=== PATIENT | male | born 1965 | race Caucasian/White ===

== ENCOUNTER 2020-09-09 11:46 | Inpatient (IN) | payer BC, OTHER ==
[~2020-09-09] VITALS: Ht 188 cm; Wt 100.7 kg
--- NOTE | 2020-09-09 12:26 | NUR ---
break rn: patient roomed to room 14 from lobby. patient aox4 vss at this time. waiting for CT scan.
[2020-09-09] MEDS ORDERED: SODIUM CHLORIDE FLUSH 10ML SYR IVF ONE (12:30)
--- NOTE | 2020-09-09 12:33 | NUR ---
break rn: patient on continuous monitoring, at bedside. lab at bedside
[2020-09-09 12:50] LABS: BASOPHILS % (AUTO) 1 % (0-1); EOSINOPHILS % (AUTO) 3 % (1-7); LYMPHOCYTES % (AUTO) 25 % (22-44); MEAN CORPUSCULAR HEMOGLOBIN 31.6 pg (27.5-34.5); MEAN CORPUSCULAR HGB CONC 33.3 g/dL (33.2-36.2); MEAN PLATELET VOLUME 7.5 fL (7.4-10.4); MONOCYTES % (AUTO) 8 % (2-9); NEUTROPHILS % (AUTO) 64 % (42-75); PLATELET COUNT 306 x10^3/uL (130-400); RED BLOOD COUNT 4.88 x10^6/uL (4.38-5.82); RED CELL DISTRIBUTION WIDTH 13.3 % (9.4-14.8)
[2020-09-09 12:51] LABS: MD NO
[2020-09-09 12:59] LABS: ALBUMIN 4.4 g/dL (3.4-5.0); CALCIUM 9.4 mg/dL (8.5-10.1)
--- NOTE | 2020-09-09 13:00 | NUR ---
PT UPRIGHT ON GURNEY WITH AT BEDSIDE. NAD, VSS. PT DENIES ANY ADDITIONAL NEEDS AT THIS TIME. CALL LIGHT WITHIN REACH, FALL PRECAUTIONS IN PLACE. WILL CONTINUE TO MONITOR.
[2020-09-09 13:02] LABS: ALANINE AMINOTRANSFERASE 25 U/L (12-78); ALKALINE PHOSPHATASE 65 U/L (45-117); BILIRUBIN,TOTAL 0.5 mg/dL (0.2-1.0); CREATININE 1.05 mg/dL (0.7-1.3); TOTAL PROTEIN 7.8 g/dL (6.4-8.2)
[2020-09-09 13:16] LABS: ANION GAP 7 mmol/L (5-15); CHLORIDE 112 mmol/L (98-107)
--- NOTE | 2020-09-09 13:30 | NUR ---
PT TO MRI
[2020-09-09] MEDS ORDERED: GADOTERATE 10 MMOL/20 ML VIAL ONE (13:49)
--- NOTE | 2020-09-09 14:15 | NUR ---
PT RETURNED FROM MRI. PT UPRIGHT ON GURNEY WITH AT BEDSIDE. NAD, VSS. PT DENIES ANY ADDITIONAL NEEDS AT THIS TIME. CALL LIGHT WITHIN REACH, FALL PRECAUTIONS IN PLACE. WILL CONTINUE TO MONITOR.
--- NOTE | 2020-09-09 15:00 | NUR ---
PT UPRIGHT ON GURNEY WITH AT BEDSIDE. NAD, VSS. PT DENIES ANY ADDITIONAL NEEDS AT THIS TIME. CALL LIGHT WITHIN REACH, FALL PRECAUTIONS IN PLACE. WILL CONTINUE TO MONITOR
[2020-09-09] MEDS ORDERED: SODIUM CHLORIDE FLUSH 10ML SYR IVF PRN (15:30)
[2020-09-09] MEDS ORDERED: DEXAMETHASONE 4 MG/ML, 1ML IVPush SCH (15:30)
--- NOTE | 2020-09-09 16:04 | NUR ---
PT TO BATHROOM WITH THIS RN. RETURNED TO [facility], PT UPRIGHT ON [facility] WITH AT BEDSIDE. NAD, VSS. PT DENIES ANY ADDITIONAL NEEDS AT THIS TIME. CALL LIGHT WITHIN REACH, FALL PRECAUTIONS IN PLACE. WILL CONTINUE TO MONITOR
[2020-09-09] MEDS ORDERED: DEXAMETHASONE 4 MG/ML, 5ML ONE (16:06)
[2020-09-09] MEDS ORDERED: RAMI10CA36 PO (16:09)
--- NOTE | 2020-09-09 17:02 | NUR ---
PT UPRIGHT ON GURNEY WITH AT BEDSIDE. NAD, VSS. PT DENIES ANY ADDITIONAL NEEDS AT THIS TIME. AT BEDSIDE. CALL LIGHT WITHIN REACH, FALL PRECAUTIONS IN PLACE. WILL CONTINUE TO MONITOR
[2020-09-09] MEDS ORDERED: ONDANSETRON 2MG/ML, 2ML IVPush PRN (18:00)
[2020-09-09] MEDS ORDERED: DOCUSATE 100 MG CAPSULE PO PRN (18:00)
[2020-09-09] MEDS ORDERED: ENALAPRILAT 1.25 MG/ML, 2ML IVPush PRN (18:00)
[2020-09-09] MEDS ORDERED: POLYETHYLENE GLYCOL 17 GM PACKET PO PRN (18:00)
[2020-09-09] MEDS ORDERED: HYDROcodone/APAP 5/325 TABLET PO PRN (18:00)
[2020-09-09] MEDS ORDERED: LABETALOL 5MG/ML, 20ML IVPush PRN (18:00)
--- NOTE | 2020-09-09 18:48 | NUR ---
Pt to be admitted to NEURO TELE, room 402-2. Report called to HAKEEM.
--- NOTE | 2020-09-09 18:54 | NUR ---
BEDSIDE REPORT TO JOSLYN BREWSTER
--- NOTE | 2020-09-09 19:08 | NUR ---
REPORT RECEIVED FROM MARKY BREWSTER
[2020-09-09] MEDS ORDERED: LEVETIRACETAM 500 MG TABLET PO SCH (21:00)
[2020-09-09] MEDS: ACETAMINOPHEN 325 MG TABLET PO PRN (21:08)
[2020-09-09] MEDS: DEXAMETHASONE 4 MG/ML, 1ML IVPush SCH (21:09)
[2020-09-09] MEDS: LEVETIRACETAM 500 MG TABLET PO SCH (21:09)
[2020-09-09 21:12] VITALS: BP 132/86
[2020-09-09 21:23] VITALS: BP 132/86
[2020-09-10 00:54] VITALS: BP 133/76
[2020-09-10] MEDS: DEXAMETHASONE 4 MG/ML, 1ML IVPush SCH ×4 (04:17→20:39)
[2020-09-10 06:07] LABS: BASOPHILS % (AUTO) 1 % (0-1); EOSINOPHILS % (AUTO) 0 % (1-7); LYMPHOCYTES % (AUTO) 6 % (22-44); MEAN CORPUSCULAR HEMOGLOBIN 31.2 pg (27.5-34.5); MEAN PLATELET VOLUME 8.1 fL (7.4-10.4); MONOCYTES % (AUTO) 1 % (2-9); NEUTROPHILS % (AUTO) 92 % (42-75); PLATELET COUNT 303 x10^3/uL (130-400); RED BLOOD COUNT 4.92 x10^6/uL (4.38-5.82); RED CELL DISTRIBUTION WIDTH 13.2 % (9.4-14.8)
[2020-09-10 06:15] LABS: CHLORIDE 111 mmol/L (98-107)
[2020-09-10 06:22] LABS: ALANINE AMINOTRANSFERASE 22 U/L (12-78); ALBUMIN 3.8 g/dL (3.4-5.0); ALKALINE PHOSPHATASE 63 U/L (45-117); ANION GAP 9 mmol/L (5-15); BILIRUBIN,TOTAL 0.6 mg/dL (0.2-1.0); CALCIUM 9.4 mg/dL (8.5-10.1); CREATININE 1.04 mg/dL (0.7-1.3); TOTAL PROTEIN 7.2 g/dL (6.4-8.2)
[2020-09-10 06:47] LABS: MD SCAN
[2020-09-10 07:48] LABS: INTERNATIONAL NORMALIZED RATIO 1.05 (0.93-1.1); PROTHROMBIN TIME 11.1 Seconds (9.6-11.5)
[2020-09-10 08:55] VITALS: BP 137/84
[2020-09-10] MEDS: RAMIPRIL 5 MG CAP PO SCH (09:38)
[2020-09-10] MEDS: LEVETIRACETAM 500 MG TABLET PO SCH ×2 (09:38→20:39)
[2020-09-10] MEDS: ACETAMINOPHEN 325 MG TABLET PO PRN ×2 (09:56→20:39)
[2020-09-10 12:37] VITALS: BP 137/71
[2020-09-10 19:37] VITALS: BP 128/73
[2020-09-11 01:41] VITALS: BP 112/73
[2020-09-11] MEDS: DEXAMETHASONE 4 MG/ML, 1ML IVPush SCH ×4 (03:11→21:49)
[2020-09-11 07:16] VITALS: BP 121/76
[2020-09-11] MEDS: RAMIPRIL 5 MG CAP PO SCH (08:55)
[2020-09-11] MEDS: LEVETIRACETAM 500 MG TABLET PO SCH ×2 (08:55→21:49)
[2020-09-11 12:09] VITALS: BP 131/78
[2020-09-11 20:05] VITALS: BP 138/75
[2020-09-12 04:18] VITALS: BP 129/81
[2020-09-12] MEDS: DEXAMETHASONE 4 MG/ML, 1ML IVPush SCH ×4 (04:20→22:02)
[2020-09-12 06:39] VITALS: BP 137/78
[2020-09-12] MEDS: RAMIPRIL 5 MG CAP PO SCH (09:24)
[2020-09-12] MEDS: LEVETIRACETAM 500 MG TABLET PO SCH ×2 (09:25→20:23)
[2020-09-12 12:43] VITALS: BP 133/77
[2020-09-12 18:50] VITALS: BP 131/76
[2020-09-12] MEDS: CALCIUM CARBONATE 500 MG TAB.CHEW PO PRN (20:23)
[2020-09-13 03:22] VITALS: BP 122/68
[2020-09-13] MEDS: DEXAMETHASONE 4 MG/ML, 1ML IVPush SCH ×4 (05:17→23:29)
[2020-09-13 05:48] LABS: BASOPHILS % (AUTO) 0 % (0-1); EOSINOPHILS % (AUTO) 0 % (1-7); LYMPHOCYTES % (AUTO) 5 % (22-44); MEAN CORPUSCULAR HEMOGLOBIN 31.1 pg (27.5-34.5); MEAN CORPUSCULAR HGB CONC 33.2 g/dL (33.2-36.2); MEAN PLATELET VOLUME 8.3 fL (7.4-10.4); MONOCYTES % (AUTO) 4 % (2-9); NEUTROPHILS % (AUTO) 91 % (42-75); PLATELET COUNT 293 x10^3/uL (130-400); RED BLOOD COUNT 4.69 x10^6/uL (4.38-5.82); RED CELL DISTRIBUTION WIDTH 13.4 % (9.4-14.8)
[2020-09-13 05:55] LABS: ANION GAP 8 mmol/L (5-15); CALCIUM 9.1 mg/dL (8.5-10.1); CHLORIDE 109 mmol/L (98-107)
[2020-09-13 05:56] LABS: CREATININE 1.01 mg/dL (0.7-1.3)
[2020-09-13 06:46] VITALS: BP 142/89
[2020-09-13 06:48] LABS: MD SCAN
[2020-09-13] MEDS: LEVETIRACETAM 500 MG TABLET PO SCH ×2 (09:51→20:31)
[2020-09-13] MEDS: RAMIPRIL 5 MG CAP PO SCH (09:51)
[2020-09-13 13:56] VITALS: BP 145/82
[2020-09-13 18:54] VITALS: BP 153/88
[2020-09-13 20:56] LABS: MICROSCOPIC NOT IND
[2020-09-14] MEDS: NS + 20MEQ KCL 1,000 ML IV SCH ×3 (01:21→20:00)
[2020-09-14 02:25] VITALS: BP 132/73
[2020-09-14] MEDS: DEXAMETHASONE 4 MG/ML, 1ML IVPush SCH ×3 (05:26→20:53)
[2020-09-14 08:48] VITALS: BP 149/78
[2020-09-14] MEDS: LEVETIRACETAM 500 MG TABLET PO SCH ×2 (09:38→20:47)
[2020-09-14] MEDS ORDERED: GADOTERATE 7.5 MMOL/15 ML VIAL ONE (11:31)
[2020-09-14] MEDS ORDERED: EPINEPHRINE 1 MG/ML, 1ML ONE (12:20)
[2020-09-14] MEDS ORDERED: BUPIVACAINE/PF 0.5% ONE (12:20)
[2020-09-14] MEDS ORDERED: BACITRACIN 50,000 UNIT ONE (12:20)
[2020-09-14] MEDS ORDERED: THROMBIN 20,000 UNIT VIAL TP ONE (12:20)
[2020-09-14] MEDS ORDERED: MANNITOL PMX 20% 500 ML ONE (12:21)
[2020-09-14] MEDS ORDERED: FENTANYL PF 250 MCG/5ML ONE ×2 (12:43→15:17)
[2020-09-14] MEDS ORDERED: MIDAZOLAM 1 MG/ML, 2ML ONE (12:58)
[2020-09-14] MEDS ORDERED: CHLORHEXIDINE 15 ML UDC ONE (13:16)
[2020-09-14] MEDS ORDERED: PROMETHAZINE 25 MG/ML, 1ML IV PRN (13:30)
[2020-09-14] MEDS ORDERED: HYDROmorphone 2 MG/ML, 1ML IVPush PRN (13:30)
[2020-09-14] MEDS ORDERED: LABETALOL 5MG/ML, 20ML IV PRN (13:30)
[2020-09-14] MEDS ORDERED: ACETAMINOPHEN 325 MG TABLET PO PRN (13:30)
[2020-09-14] MEDS ORDERED: MEPERIDINE/PF 25MG/0.5ML IVPush PRN (13:30)
[2020-09-14] MEDS ORDERED: DIAZEPAM 5 MG/ML, 2ML IVPush PRN (13:30)
[2020-09-14] MEDS ORDERED: ALBUTEROL SULFATE 2.5 MG/3 ML NPPB PRN (13:30)
[2020-09-14] MEDS ORDERED: OXYcodone 5 MG/5 ML ORAL.SOL UDC PO PRN (13:30)
[2020-09-14] MEDS ORDERED: KETOROLAC 30 MG/1 ML IV PRN (13:30)
[2020-09-14] MEDS ORDERED: hydrALAzine 20 MG/ML, 1ML IV PRN (13:30)
[2020-09-14] MEDS ORDERED: LEVETIRACETAM 1,000 MG in SODIUM CHLORIDE 0.9% 100 ML IV STA (13:43)
[2020-09-14] MEDS ORDERED: ONDANSETRON 2MG/ML, 2ML ONE (13:52)
[2020-09-14] MEDS ORDERED: GLYCOPYRROLATE 0.2MG/1ML, 5ML ONE (13:52)
[2020-09-14] MEDS ORDERED: ROCURONIUM 10 MG/ML,10ML ONE (13:52)
[2020-09-14] MEDS ORDERED: DEXAMETHASONE 4 MG/ML, 5ML ONE (13:52)
[2020-09-14] MEDS ORDERED: LEVETIRACETAM 100 MG/ML, 5ML ONE (13:52)
[2020-09-14] MEDS ORDERED: PHENYLEPHRINE 10 MG/ML ONE (13:52)
[2020-09-14] MEDS ORDERED: PROPOFOL 10 MG/ML, 50ML ONE (13:52)
[2020-09-14] MEDS ORDERED: CEFAZOLIN 1,000 MG ONE (13:52)
[2020-09-14] MEDS ORDERED: FENTANYL PF 100 MCG/2ML ONE ×2 (17:24→17:33)
[2020-09-14] MEDS ORDERED: hydrALAzine 20 MG/ML, 1ML ONE ×2 (17:24→17:33)
[2020-09-14] MEDS ORDERED: MEPERIDINE/PF 25MG/ML,1ML ONE (17:26)
[2020-09-14] MEDS: FENTANYL PF 100 MCG/2ML IV PRN ×3 (17:27→17:50)
[2020-09-14] MEDS: ACETAMINOPHEN 325 MG TABLET PO PRN ×2 (18:58→23:18)
[2020-09-15] MEDS: DEXAMETHASONE 4 MG/ML, 1ML IVPush SCH ×3 (02:32→18:29)
[2020-09-15 05:00] VITALS: BP 138/68
[2020-09-15] MEDS: LEVETIRACETAM 500 MG TABLET PO SCH ×2 (08:13→20:44)
[2020-09-15] MEDS: RAMIPRIL 5 MG CAP PO SCH (09:00)
[2020-09-15 09:01] LABS: BASOPHILS % (AUTO) 0 % (0-1); EOSINOPHILS % (AUTO) 0 % (1-7); LYMPHOCYTES % (AUTO) 3 % (22-44); MEAN CORPUSCULAR HEMOGLOBIN 30.5 pg (27.5-34.5); MEAN CORPUSCULAR HGB CONC 32.4 g/dL (33.2-36.2); MEAN PLATELET VOLUME 8.4 fL (7.4-10.4); MONOCYTES % (AUTO) 7 % (2-9); NEUTROPHILS % (AUTO) 90 % (42-75); PLATELET COUNT 289 x10^3/uL (130-400); RED BLOOD COUNT 4.93 x10^6/uL (4.38-5.82); RED CELL DISTRIBUTION WIDTH 13.2 % (9.4-14.8)
[2020-09-15] MEDS: ACETAMINOPHEN 325 MG TABLET PO PRN ×3 (09:02→20:44)
[2020-09-15 09:16] LABS: ALANINE AMINOTRANSFERASE 57 U/L (12-78); ALBUMIN 3.4 g/dL (3.4-5.0); ANION GAP 7 mmol/L (5-15); CALCIUM 8.8 mg/dL (8.5-10.1); CHLORIDE 108 mmol/L (98-107); CREATININE 1.05 mg/dL (0.7-1.3)
[2020-09-15 09:18] LABS: ALKALINE PHOSPHATASE 49 U/L (45-117); BILIRUBIN,TOTAL 1.3 mg/dL (0.2-1.0); TOTAL PROTEIN 6.3 g/dL (6.4-8.2)
[2020-09-15 09:28] LABS: MD SCAN
[2020-09-15] MEDS ORDERED: LABETALOL 5MG/ML, 20ML IVPush PRN (10:00)
[2020-09-15] MEDS ORDERED: GADOTERATE 10 MMOL/20 ML VIAL ONE (10:16)
[2020-09-15] MEDS ORDERED: ENALAPRILAT 1.25 MG/ML, 2ML IVPush PRN (12:00)
[2020-09-15 19:29] VITALS: BP 129/76
[2020-09-16 00:09] VITALS: BP 129/77
[2020-09-16] MEDS: DEXAMETHASONE 4 MG/ML, 1ML IVPush SCH ×2 (01:57→09:12)
[2020-09-16] MEDS ORDERED: RAMIPRIL 5 MG CAP PO SCH (09:00)
[2020-09-16] MEDS: LEVETIRACETAM 500 MG TABLET PO SCH (09:10)
[2020-09-16 09:52] VITALS: BP 139/86
[2020-09-16] MEDS: CALCIUM CARBONATE 500 MG TAB.CHEW PO PRN (14:58)
[2020-09-16] MEDS ORDERED: LEVE500T53 PO (15:47)
[2020-09-16] MEDS ORDERED: ACET325T26 PO (15:47)
[2020-09-16] MEDS ORDERED: DEXA4VIA39 IVPush (15:47)
[2020-09-16 16:23] VITALS: BP 138/91
== END 2020-09-16 16:48 | disposition home health service (06) | DRG 25 ==
LOC: ED 13:17 → EDIP 15:21 → 4WST 19:15 → 4NW 09-11 18:41 → CCU 09-14 18:25 → 4NW 09-15 17:29 → DCLOUNGE 09-16 16:37
PROVIDERS: ADMIT Internal Medicine; ATTEND Internal Medicine
PROC: 00B70ZZ Excision of Cerebral Hemisphere, Open Approach (ICD-10-PCS; principal; 2020-09-14 13:30)
DX: C71.9 Malignant neoplasm of brain, unspecified (principal); G93.6 Cerebral edema; G40.89 Other seizures; I10 Essential (primary) hypertension; Z20.828 Contact with and (suspected) exposure to other viral communicable diseases; T38.0X5A Adverse effect of glucocorticoids and synthetic analogues, initial encounter; D72.829 Elevated white blood cell count, unspecified
CPT/HCPCS: 36415; 96374; 99285; A9575; S0020; 70450; 70553; 80048; 80053; 81003; 85025; 85610; 85730; 87081; 87635; 88307; 88331; 93005; C1713; C1729; G0378; J0171; J0690; J1100; J1953; J2175; J2250; J2405; J2704; J3010; J3480; A4648; C1781; J0360; J2370; J7050

== ENCOUNTER → 2020-10-01 | Outpatient (CLI) | payer BC ==
[~2020-10-01] MED LIST: ACET325T26 PO; DEXA4VIA39 IVPush; LEVE500T53 PO; RAMI10CA36 PO
== END | disposition home or self-care (01) ==
LOC: ROC 07:45
PROVIDERS: ATTEND Radiology Radiation Oncology
DX: C71.2 Malignant neoplasm of temporal lobe (principal); I10 Essential (primary) hypertension
CPT/HCPCS: 99214; G0463

== ENCOUNTER 2020-10-14 14:10 | Inpatient (IN) | payer BC ==
[~2020-10-14] VITALS: Ht 188 cm; Wt 96.3 kg
--- NOTE | 2020-10-14 14:32 | NUR ---
ABRAHAM, CELL [phone]
--- NOTE | 2020-10-14 15:20 | NUR ---
PT TO RM FROM LOBBY AT THIS TIME
--- NOTE | 2020-10-14 15:40 | NUR ---
PT SENT HERE BY , PER PT HE HAS HAD INCREASING SOB SINCE LAST NIGHT, WENT FOR EVAL D/T SOB/FATIGUE SYMPTOMS THEY THEN FOUND PNA ON CHEST DX. PT SATING 92% ON RA IN RM. PT WITH RECENT CHEMO D/T BRAIN TUMOR PT PLACED ON CARD MONITOR, BP, CONT PULSE OX.
[2020-10-14] MEDS ORDERED: ACETAMINOPHEN 325 MG TABLET ONE (16:15)
[2020-10-14] MEDS ORDERED: CEFTRIAXONE PMX 1GM/50ML 50 ML ONE (16:15)
[2020-10-14] MEDS ORDERED: AZITHROMYCIN 500 MG in SODIUM CHLORIDE 0.9% 250 ML IV ONE (16:30)
[2020-10-14] MEDS ORDERED: CEFTRIAXONE PMX 1GM/50ML 50 ML IVPB ONE (16:30)
[2020-10-14] MEDS ORDERED: ACETAMINOPHEN 325 MG TABLET PO ONE (16:30)
--- NOTE | 2020-10-14 16:45 | NUR ---
PT MEDICATED PER MAR, PT REMAINS 92-93% RA. GIVEN MEAL TRAY WITH ERMD OK.
[2020-10-14 16:48] LABS: BASOPHILS % (AUTO) 1 % (0-1); EOSINOPHILS % (AUTO) 1 % (1-7); LYMPHOCYTES % (AUTO) 26 % (22-44); MEAN CORPUSCULAR HEMOGLOBIN 31.4 pg (27.5-34.5); MEAN CORPUSCULAR HGB CONC 33.1 g/dL (33.2-36.2); MEAN PLATELET VOLUME 7.5 fL (7.4-10.4); MONOCYTES % (AUTO) 12 % (2-9); NEUTROPHILS % (AUTO) 60 % (42-75); PLATELET COUNT 319 x10^3/uL (130-400); RED BLOOD COUNT 4.53 x10^6/uL (4.38-5.82)
[2020-10-14 17:06] LABS: ALBUMIN 3.6 g/dL (3.4-5.0); ANION GAP 4 mmol/L (5-15); CALCIUM 9.1 mg/dL (8.5-10.1); CHLORIDE 108 mmol/L (98-107); CREATININE 1.17 mg/dL (0.7-1.3)
[2020-10-14 17:07] LABS: MD NO
[2020-10-14] MEDS ORDERED: OMNIPAQUE 350 MG/ML, 100ML BOTTLE ONE (17:47)
--- NOTE | 2020-10-14 17:58 | NUR ---
CARDIOLOGY PAGED STAT PER DR WEBSTER. HEPARIN GTT ORDERED, STAT 10A ORDERED
[2020-10-14] MEDS ORDERED: HEPARIN 25,000 UNITS/250ML PMX 250 ML IV PRN ×2 (18:00→22:00)
[2020-10-14] MEDS ORDERED: HEPARIN 5,000 UNITS/ML, 1ML IV PRN (18:00)
[2020-10-14] MEDS ORDERED: HEPARIN 5,000 UNITS/ML, 1ML IV ONE (18:00)
[2020-10-14] MEDS ORDERED: HEPARIN 25,000 UNITS/250ML PMX 250 ML ONE (18:00)
[2020-10-14] MEDS ORDERED: HEPARIN 5,000 UNITS/ML, 1ML ONE (18:00)
--- NOTE | 2020-10-14 18:21 | NUR ---
mushroom laborer notified and on their way in.
--- NOTE | 2020-10-14 18:21 | NUR ---
SECOND PIV ACCESS INITIATED
[2020-10-14 18:27] LABS: INTERNATIONAL NORMALIZED RATIO 1.02 (0.93-1.1); PROTHROMBIN TIME 10.8 Seconds (9.6-11.5)
--- NOTE | 2020-10-14 18:28 | NUR ---
CALLED AND UPDATED BY DR WEBSTER, PT UPDATED, HEPARIN GTT STARTED.
[2020-10-14] MEDS: SODIUM CHLORIDE 0.9% 1,000 ML IV SCH ×2 (18:30→19:30)
[2020-10-14] MEDS ORDERED: AZITHROMYCIN 500 MG in SODIUM CHLORIDE 0.9% 250 ML IV SCH (18:30)
[2020-10-14] MEDS ORDERED: CEFTRIAXONE PMX 1GM/50ML 50 ML IV SCH (18:30)
[2020-10-14] MEDS ORDERED: morphine SULFATE 10 MG/ML, 1ML IVPush PRN (18:30)
[2020-10-14] MEDS ORDERED: ONDANSETRON 2MG/ML, 2ML IVPush PRN (18:30)
[2020-10-14] MEDS ORDERED: VANCOMYCIN PER PHARMACY MC PRN (18:30)
--- NOTE | 2020-10-14 19:05 | NUR ---
REPORT GIVEN TO EDYTA BREWSTER IN LICENSED GUIDE AND GABRIEL BREWSTER
[2020-10-14] MEDS ORDERED: LIDOCAINE 2%, 20ML ONE (19:17)
[2020-10-14] MEDS ORDERED: FENTANYL PF 100 MCG/2ML ONE (19:17)
[2020-10-14] MEDS ORDERED: MIDAZOLAM 1 MG/ML, 5ML ONE (19:17)
--- NOTE | 2020-10-14 19:19 | NUR ---
dr starkey at bedside. consent signed and handed directly to laboratory monitor staff. laboratory monitor staff here to transport pt to lab.
[2020-10-14] MEDS ORDERED: ALTEPLASE 10 MG in SODIUM CHLORIDE 0.9% 240 ML IV ONE (19:30)
[2020-10-14] MEDS ORDERED: ALTEPLASE IVPB ONE ×2 (19:30)
[2020-10-14] MEDS ORDERED: NS IVPB ONE ×2 (19:30)
[2020-10-14] MEDS ORDERED: Heparin 1000 units/500 ml 500 ML IV SCH (20:30)
[2020-10-14] MEDS ORDERED: SODIUM CHLORIDE 0.9% 1,000 ML IV SCH ×2 (20:30)
[2020-10-14] MEDS ORDERED: SODIUM CHLORIDE FLUSH 3ML SYRINGE IVF PRN (20:30)
[2020-10-14 20:47] VITALS: BP 117/76
[2020-10-14] MEDS ORDERED: VANCOMYCIN 2,300 MG in SODIUM CHLORIDE 0.9% 500 ML IV ONE (21:00)
[2020-10-14] MEDS ORDERED: PHARMACOKINETIC MONITORING MC PRN (21:00)
[2020-10-14] MEDS ORDERED: ONDA4TAB7 PO (21:02)
[2020-10-14] MEDS ORDERED: TEMO20CA PO (21:02)
[2020-10-14] MEDS ORDERED: TEMO140C3 PO (21:02)
[2020-10-14] MEDS: PIPERACILLIN/TAZO/PMX 3.375GM 50 ML IV SCH (21:31)
[2020-10-14] MEDS: LEVETIRACETAM 500 MG TABLET PO SCH (21:49)
[2020-10-15] MEDS: PIPERACILLIN/TAZO/PMX 3.375GM 50 ML IV SCH ×2 (04:35→14:25)
[2020-10-15 05:32] LABS: BASOPHILS % (AUTO) 1 % (0-1); EOSINOPHILS % (AUTO) 1 % (1-7); LYMPHOCYTES % (AUTO) 21 % (22-44); MEAN CORPUSCULAR HEMOGLOBIN 31.8 pg (27.5-34.5); MEAN CORPUSCULAR HGB CONC 33.7 g/dL (33.2-36.2); MEAN PLATELET VOLUME 7.6 fL (7.4-10.4); MONOCYTES % (AUTO) 10 % (2-9); NEUTROPHILS % (AUTO) 68 % (42-75); PLATELET COUNT 259 x10^3/uL (130-400); RED BLOOD COUNT 4.08 x10^6/uL (4.38-5.82)
[2020-10-15 05:37] LABS: CHLORIDE 110 mmol/L (98-107)
[2020-10-15 05:43] LABS: ALANINE AMINOTRANSFERASE 22 U/L (12-78); ALKALINE PHOSPHATASE 67 U/L (45-117); ANION GAP 4 mmol/L (5-15); BILIRUBIN,TOTAL 0.5 mg/dL (0.2-1.0); CREATININE 0.99 mg/dL (0.7-1.3)
[2020-10-15 05:51] LABS: MD NO
[2020-10-15] MEDS: SODIUM CHLORIDE 0.9% 1,000 ML IV SCH ×2 (07:50→19:57)
[2020-10-15] MEDS ORDERED: VANCOMYCIN 2,000 MG in SODIUM CHLORIDE 0.9% 500 ML IV SCH (09:00)
[2020-10-15] MEDS ORDERED: CHOLECALCIFEROL (VITAMIN D3) 5000 IU CAP PO SCH (09:00)
[2020-10-15] MEDS ORDERED: THIAMINE 100MG TABLET PO SCH (09:00)
[2020-10-15] MEDS ORDERED: ZINC SULFATE 220 MG CAPSULE PO SCH (09:00)
[2020-10-15] MEDS: LEVETIRACETAM 500 MG TABLET PO SCH ×2 (09:10→21:10)
[2020-10-15] MEDS: ASCORBIC ACID 500 MG TABLET PO SCH ×2 (09:49→17:54)
[2020-10-15 12:24] LABS: RAPID INFLUENZA A Negative (Negative); RAPID INFLUENZA B Negative (Negative)
[2020-10-15] MEDS: APIXABAN 5 MG TABLET PO SCH ×2 (14:25→21:10)
[2020-10-15 16:30] VITALS: BP 129/76
[2020-10-15] MEDS: ACETAMINOPHEN 325 MG TABLET PO PRN ×2 (17:53→19:57)
[2020-10-15 19:20] VITALS: BP 126/82
[2020-10-15] MEDS: PIPERACILLIN/TAZO/PMX 4.5GM 100 ML IV SCH (21:10)
[2020-10-16 00:46] VITALS: BP 129/86
[2020-10-16] MEDS: PIPERACILLIN/TAZO/PMX 4.5GM 100 ML IV SCH ×2 (02:47→09:35)
[2020-10-16 07:09] VITALS: BP 123/80
[2020-10-16 07:16] LABS: BASOPHILS % (AUTO) 1 % (0-1); EOSINOPHILS % (AUTO) 1 % (1-7); LYMPHOCYTES % (AUTO) 22 % (22-44); MEAN CORPUSCULAR HEMOGLOBIN 32.1 pg (27.5-34.5); MEAN PLATELET VOLUME 7.3 fL (7.4-10.4); MONOCYTES % (AUTO) 9 % (2-9); NEUTROPHILS % (AUTO) 67 % (42-75); PLATELET COUNT 265 x10^3/uL (130-400); RED CELL DISTRIBUTION WIDTH 13.6 % (9.4-14.8)
[2020-10-16 07:18] LABS: MD NO
[2020-10-16 07:19] LABS: ANION GAP 4 mmol/L (5-15); CALCIUM 8.5 mg/dL (8.5-10.1); CHLORIDE 111 mmol/L (98-107)
[2020-10-16 07:22] LABS: CREATININE 0.95 mg/dL (0.7-1.3)
[2020-10-16] MEDS ORDERED: RAMIPRIL 2.5 MG CAPSULE PO SCH (09:00)
[2020-10-16 09:06] LABS: OCCULT BLOOD NEGATIVE (NEGATIVE)
[2020-10-16] MEDS: LEVETIRACETAM 500 MG TABLET PO SCH (09:35)
[2020-10-16] MEDS: APIXABAN 5 MG TABLET PO SCH (09:35)
[2020-10-16] MEDS ORDERED: METOPROLOL SUCCINATE 25 MG TAB.ER.24H PO SCH (11:00)
[2020-10-16] MEDS ORDERED: METO25TA91 PO (11:32)
[2020-10-16] MEDS ORDERED: AMOX1TAB12 PO (11:32)
[2020-10-16] MEDS ORDERED: APIX5TAB PO (11:32)
[2020-10-16] MEDS ORDERED: ACID1TAB7 PO (11:32)
[2020-10-16] MEDS ORDERED: RAMI2.5C2 PO (11:32)
[2020-10-16] MEDS ORDERED: AMOXICILLIN/CLAV 875-125MG TABLET PO SCH (12:00)
[2020-10-16] MEDS ORDERED: LACTOBACILLUS CHEW TABLET PO SCH (12:00)
[2020-10-22] MEDS ORDERED: APIXABAN 5 MG TABLET PO SCH (09:00)
== END 2020-10-16 12:56 | disposition home health service (06) | DRG 166 ==
LOC: ED 14:45 → EDIP 16:45 → CCU 20:27 → 4WST 10-15 16:13 → DCLOUNGE 10-16 12:37
PROVIDERS: ADMIT Family Medicine; ATTEND Internal Medicine
PROC: 02FQ3Z0 Fragmentation of Right Pulmonary Artery, Percutaneous Approach, Ultrasonic (ICD-10-PCS; principal; 2020-10-14)
PROC: 02FR3Z0 Fragmentation of Left Pulmonary Artery, Percutaneous Approach, Ultrasonic (ICD-10-PCS; 2020-10-14)
DX: I26.92 Saddle embolus of pulmonary artery without acute cor pulmonale (principal); J96.01 Acute respiratory failure with hypoxia; J18.9 Pneumonia, unspecified organism; I82.402 Acute embolism and thrombosis of unspecified deep veins of left lower extremity; I50.20 Unspecified systolic (congestive) heart failure; I48.92 Unspecified atrial flutter; C71.9 Malignant neoplasm of brain, unspecified; D68.59 Other primary thrombophilia; E78.5 Hyperlipidemia, unspecified; D64.9 Anemia, unspecified; I48.0 Paroxysmal atrial fibrillation; R56.9 Unspecified convulsions; Z20.828 Contact with and (suspected) exposure to other viral communicable diseases; Z87.891 Personal history of nicotine dependence; Z85.841 Personal history of malignant neoplasm of brain; Z83.3 Family history of diabetes mellitus; Z82.49 Family history of ischemic heart disease and other diseases of the circulatory system
CPT/HCPCS: 36415; 37211; 87400; J3490; 70450; 71275; 76937; 80048; 80053; 82040; 82272; 83605; 83615; 85025; 85379; 85520; 85610; 85730; 86140; 87040; 87081; 93005; 93306; 93970; 96365; 96368; 99156; 99157; 99291; C1769; C1894; G0378; J0456; J0696; J1644; J2250; J2543; J2997; J3010; J3370; Q9967; J7030; J7040; J7050; U0003

== ENCOUNTER 2020-12-17 07:22 | Outpatient (CLI) | payer BC ==
[~2020-12-17 07:22] MED LIST changes: +ACID1TAB7 PO; +AMOX1TAB12 PO; +APIX5TAB PO; +METO25TA91 PO; +ONDA4TAB7 PO; +RAMI2.5C49 PO; +TEMO140C3 PO; +TEMO20CA PO
== END 2020-12-17 23:59 | disposition home or self-care (01) ==
LOC: ROC 07:22
PROVIDERS: ATTEND Radiology Radiation Oncology
DX: C71.2 Malignant neoplasm of temporal lobe (principal); J96.10 Chronic respiratory failure, unspecified whether with hypoxia or hypercapnia; I11.0 Hypertensive heart disease with heart failure; I50.20 Unspecified systolic (congestive) heart failure; E78.5 Hyperlipidemia, unspecified; Z86.718 Personal history of other venous thrombosis and embolism; Z87.891 Personal history of nicotine dependence
CPT/HCPCS: 99213; G0463

== ENCOUNTER → 2021-01-26 | Outpatient (CLI) | payer BC | END | disposition home or self-care (01) | LOC: ROC 12-07 07:38 | PROVIDERS: ATTEND Radiology Radiation Oncology | DX: C71.2 Malignant neoplasm of temporal lobe (principal); J96.10 Chronic respiratory failure, unspecified whether with hypoxia or hypercapnia; I11.0 Hypertensive heart disease with heart failure; I50.20 Unspecified systolic (congestive) heart failure; E78.5 Hyperlipidemia, unspecified; Z87.891 Personal history of nicotine dependence; Z86.718 Personal history of other venous thrombosis and embolism | CPT/HCPCS: 99213; G0463 ==

== ENCOUNTER → 2021-02-10 | Outpatient (CLI) | payer BC | END | disposition home or self-care (01) | LOC: CFH 09:46 | PROVIDERS: ATTEND Internal Medicine Cardiovascular Disease | DX: I26.02 Saddle embolus of pulmonary artery with acute cor pulmonale (principal) | CPT/HCPCS: 93306 ==

== ENCOUNTER 2021-03-11 09:29 | Outpatient (CLI) | payer BC ==
[~2021-03-11 09:29] MED LIST changes: -TEMO140C3 PO; +[UNRECOGNIZED DRUG - CODE] PO
== END 2021-03-11 23:59 | disposition home or self-care (01) ==
LOC: ROC 09:29
PROVIDERS: ATTEND Radiology Radiation Oncology
DX: Z08 Encounter for follow-up examination after completed treatment for malignant neoplasm (principal); C71.2 Malignant neoplasm of temporal lobe; J96.11 Chronic respiratory failure with hypoxia; E78.5 Hyperlipidemia, unspecified; I11.0 Hypertensive heart disease with heart failure; I50.20 Unspecified systolic (congestive) heart failure; Z87.891 Personal history of nicotine dependence
CPT/HCPCS: 99213; G0463

== ENCOUNTER → 2021-05-23 | Outpatient (CLI) | payer BC ==
[~2021-05-23] MED LIST changes: +TEMO140C3 PO; -[UNRECOGNIZED DRUG - CODE] PO
== END | disposition home or self-care (01) ==
LOC: ROC 07:44
PROVIDERS: ATTEND Radiology Radiation Oncology
DX: Z08 Encounter for follow-up examination after completed treatment for malignant neoplasm (principal); C71.2 Malignant neoplasm of temporal lobe
CPT/HCPCS: 99213; G0463

== ENCOUNTER → 2021-08-11 | Outpatient (CLI) | payer BC ==
[~2021-08-11] MED LIST changes: -TEMO140C3 PO; +[UNRECOGNIZED DRUG - CODE] PO
== END | disposition home or self-care (01) ==
LOC: ROC 08:36
PROVIDERS: ATTEND Radiology Radiation Oncology
DX: Z08 Encounter for follow-up examination after completed treatment for malignant neoplasm (principal); Z85.841 Personal history of malignant neoplasm of brain
CPT/HCPCS: 99213; G0463